=== PATIENT | female | born 1985 | race African-American/Black ===

== ENCOUNTER 2018-04-11 12:59 | Emergency (ER) | payer SELFPAY ==
[~2018-04-11] VITALS: Ht 162.6 cm; Wt 109.3 kg
[~2018-04-11 12:59] MED LIST: DOCU-109 PO; FERR300L PO; Ibuprofen PO; NITR100C PO; Oxycodone Hcl/Acetaminophen PO; PNV1TABL25 PO
[2018-04-11 14:20] VITALS: BP 137/83
--- NOTE | 2018-04-11 14:50 | PHYS DOC ---
Past Medical History Past Medical History: No Pertinent History Past Surgical History: No Surgical History Alcohol Use: None Drug Use: None Adult General Chief Complaint Chief Complaint: COUGH HPI HPI Patient is a 33 year old -[place] female who presents to the emergency room with complaints of runny nose, sneezing, sinus pressure, headache, and chest congestion for the last 4 days. She states on Wednesday she had a few loose stools however she has not had any since. She denies any fever, wheezing, chest pain, abdominal pain, nausea, or vomiting. She states that the drainage from her nose and the mucus that is produced by her cough is a light yellow or green color and thick. She reports a history of seasonal allergic rhinitis, states she has taken Benadryl for relief of her symptoms with no help area she is allergic to Macrobid, her last menstrual period was 2 weeks ago. In addition , patient states she feels short of breath when she is going up the stairs. Review of Systems Review of Systems Constitutional: Denies fever or chills [] Eyes: Denies change in visual acuity, redness, or eye pain [] HENT: Denies ear pain or sore throat; reports nasal congestion, runny nose and sinus pressure [] Respiratory: Reports productive cough or chest congestion, and shortness of breath when going up stairs. [] Cardiovascular: Denies chest pain GI: Denies abdominal pain, nausea, vomiting, or diarrhea [] Integument: Denies rash or skin lesions [] Neurologic: Denies focal weakness or sensory changes; reports sinus headache Allergies Allergies Allergies Coded Allergies Type Severity Reaction Last Updated Verified nitrofurantoin Allergy Intermediate hives, itching 12/23/14 Yes Physical Exam Physical Exam Constitutional: Well developed, well nourished, no acute distress, non-toxic appearance. [] HENT: Normocephalic, atraumatic, bilateral external ears normal, lateral TMs normal, postnasal drainage present, mild tenderness with palpation of maxillary and frontal sinuses, oropharynx moist, no oral exudates, nasal turbinates are edematous with erythema and mucus present Eyes: PERRLA, conjunctiva normal, no discharge; allergic shiners bilaterally. [ ] Neck: Normal range of motion, no tenderness, supple, no stridor. [] Cardiovascular:Heart rate regular rhythm, no murmur [] Lungs & Thorax: Bilateral breath sounds clear to auscultation [] Skin: Warm, dry, no erythema, no rash. [] Extremities: No cyanosis, Neurologic: Alert and oriented X 3, normal motor function, normal sensory function, no focal deficits noted. [] Psychologic: Affect normal, judgement normal, mood normal. [] Current Patient Data Vital Signs Vital Signs Date Time Temp Pulse Resp B/P (MAP) Pulse Ox O2 Delivery O2 Flow Rate FiO2 04/11/18 14:20 98.7 79 18 137/83 (101) 98 Room Air 98.7 EKG EKG [] Radiology/Procedures Radiology/Procedures [] Course & Med Decision Making Course & Med Decision Making Pertinent Labs and Imaging studies reviewed. (See chart for details) Patient is a 33-year-old female who presents to the emergency room with complaints of a runny nose, sneezing, sinus pressure, headache, and nasal congestion for the last 5 days. Her vital signs are stable. Her physical exam and patient history are consistent with seasonal allergic rhinitis, treated as such. Patient was encouraged to purchase generic lykf-jlo-iqfzkgz antihistamine such as Zyrtec, Claritin, Constance and use zxjm-kle-baqfcok Flonase for relief of her symptoms. Patient verbalized an understanding of home care, medications, follow-up, and return to ED instructions and was in agreement with the plan of care. [] Dragon Disclaimer Dragon Disclaimer This electronic medical record was generated, in whole or in part, using a voice recognition dictation system. Departure Departure Impression: Primary Impression: Allergic rhinitis Disposition: HOME, SELF-CARE Condition: STABLE Referrals: NO PCP (PCP) Patient Instructions: Allergic Rhinitis Additional Instructions: Recommend an nidb-tnm-dqlnskq antihistamine such as Zyrtec or cetirizine, in addition to OTC Flonase nasal spray, 2 sprays each nare daily. Cool mist humidifier in room at bedtime. Tylenol or ibuprofen prn pain/fever. Increase clear fluids. Avoid triggers such as smoke, fragrance, dust, and pollen. May take OTC cough suppressants as needed. Follow-up with your primary care doctor in 1-2 days, return to the emergency room if your symptoms worsen. 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
== END 2018-04-11 15:15 | disposition home or self-care (01) ==
LOC: ER 12:59
DX: J30.9 Allergic rhinitis, unspecified (principal); R51 Headache; Z88.8 Allergy status to other drugs, medicaments and biological substances
CPT/HCPCS: 99281

== ENCOUNTER 2021-01-11 17:58 | Emergency (ER) | payer OTHER, BC ==
[~2021-01-11] VITALS: Ht 162.6 cm; Wt 114.0 kg
[2021-01-11 18:10] VITALS: BP 149/106
[2021-01-11 19:57] LABS: BILIRUBIN,URINE NEGATIVE (NEG); CLARITY,URINE CLEAR; COLOR,URINE YELLOW; NITRITE,URINE NEGATIVE (NEG); PROTEIN,URINE NEGATIVE (NEG-TRACE)
[2021-01-11 20:11] LABS: BACTERIA,URINE 0 /HPF (0-FEW); RBC,URINE OCC /HPF (0-2); WBC,URINE OCC /HPF (0-4)
[2021-01-11] MEDS ORDERED: KETOROLAC 60 MG/2 ML VIAL. IM ONE (20:15)
[2021-01-11] MEDS ORDERED: ORPHENADRINE CITRATE 60 MG/2 ML VIAL. IM ONE (20:15)
--- NOTE | 2021-01-11 20:28 | RAD ---
XR SHOULDER_LEFT 2+ VIEWS Clinical indications: Left shoulder pain after fall Findings: No acute fracture or dislocation or osteolytic process is evident. No AC joint separation is seen. Impression: No acute osseous abnormality is evident. Electronically signed by: Pablo Zarco MD (01/11/2021 8:25 PM) [id number]
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
--- NOTE | 2021-01-11 21:19 | RAD ---
Three-view study lumbar spine Clinical indications: low back pain after a fall. FINDINGS: The transverse processes are intact. No compression fracture or discitis or lytic process o r anterolisthesis is seen. IMPRESSION: No acute compression fracture. Electronically signed by: Pablo Zarco MD (01/11/2021 9:17 PM) [id number]
--- NOTE | 2021-01-11 21:21 | RAD ---
Three-view right foot study Clinical indications: Right foot pain after a fall. FINDINGS: There is a plantar cortical fracture of the proximal aspect of the first distal phalanx as seen in the lateral view. There is a small fracture of the proximal lateral corner of the third middl e phalanx as seen in the oblique view. No dislocation or lytic process is evident. No plantar spur of the calcaneus is seen. IMPRESSION: Fractures of the first distal phalanx and the third middle phalanx. Electronically signed by: Pablo Zarco MD (01/11/2021 9:19 PM) [id number]
[2021-01-11] MEDS ORDERED: CYCL10TA2 PO (22:23)
[2021-01-11] MEDS ORDERED: NAPR-514 PO (22:23)
== END 2021-01-11 22:39 | disposition home or self-care (01) ==
LOC: ER 17:58
DX: S92.421A Displaced fracture of distal phalanx of right great toe, initial encounter for closed fracture (principal); S92.521A Displaced fracture of middle phalanx of right lesser toe(s), initial encounter for closed fracture; M25.512 Pain in left shoulder; M54.41 Lumbago with sciatica, right side; M54.42 Lumbago with sciatica, left side; Z87.891 Personal history of nicotine dependence; W18.39XA Other fall on same level, initial encounter; Y93.89 Activity, other specified; Y92.89 Other specified places as the place of occurrence of the external cause; Y99.8 Other external cause status
CPT/HCPCS: 72100; 73030; 73630; 81001; 81025; 96372; 99284; J1885; J2360

== ENCOUNTER → 2021-02-14 | Outpatient (CLI) | payer BC ==
[~2021-02-14] MED LIST changes: +CYCL10TA2 PO; +NAPR-514 PO
--- NOTE | 2021-02-14 10:32 | KCIC ---
EXAM: Right foot, 2 views. HISTORY: Fracture follow-up. COMPARISON: 01/11/2021. FINDINGS: 2 views of the right foot are obtained. The previously described first distal phalanx and t hird middle phalanx fractures are no longer seen. There is no acute fracture, dislocation or subluxat ion. There is no radiodense foreign body. IMPRESSION: No acute osseous finding. Electronically signed by: Denise Jose MD (02/14/2021 10:30 AM) [id number]
== END ==
LOC: KCIC 09:56
PROVIDERS: ATTEND Family Medicine
DX: S92.521 Displaced fracture of middle phalanx of right lesser toe(s) (principal); X58.XXXD Exposure to other specified factors, subsequent encounter; Z68.41 Body mass index [BMI] 40.0-44.9, adult
CPT/HCPCS: 73620